=== PATIENT | male | born 1975 | race Two or more races ===

== ENCOUNTER 2024-12-18 09:42 | Emergency (ER) | payer OTHER ==
[~2024-12-18] VITALS: Ht 185.4 cm; Wt 93.0 kg
[2024-12-18] MEDS ORDERED: METFORMIN HCL1000 M2 PO (11:39)
[2024-12-18] MEDS ORDERED: SYNTHROID75 MCG PO (11:40)
== END 2024-12-18 16:36 | disposition home or self-care (01) ==
LOC: ER 09:45
DX: S50.01XA Contusion of right elbow, initial encounter (principal); S80.01XA Contusion of right knee, initial encounter; S00.93XA Contusion of unspecified part of head, initial encounter; W19.XXXA Unspecified fall, initial encounter; Y93.89 Activity, other specified; Y92.89 Other specified places as the place of occurrence of the external cause; Y99.8 Other external cause status; I10 Essential (primary) hypertension; E11.9 Type 2 diabetes mellitus without complications; Z79.84 Long term (current) use of oral hypoglycemic drugs; Z88.6 Allergy status to analgesic agent